=== PATIENT | female | born 1980 | race Caucasian/White ===

== ENCOUNTER 2017-04-07 11:42 | Inpatient (IN) | payer OTHER ==
[~2017-04-07] VITALS: Ht 162.6 cm; Wt 71.0 kg
[~2017-04-07 11:42] MED LIST: ANAPROX DS550 MG PO; AUGMENTIN 875 M1 TAB PO; BACTRIM DS 8001 TA1 PO; CIPRO500 MG PO; DOXYCYCLINE MO100 MG PO; MOTRIN800 MG PO; PEN-VEE K500 MG PO; PIROXICAN20 MG PO; SEPTRA DS 800 M1 TAB PO; TRAMADOL HCL50 MG PO; TRIMOX500 MG PO; ULTRAM50 MG PO
[2017-04-07 12:00] VITALS: BP 104/73
[2017-04-07 14:38] LABS: BASO % 0.3 % (0.0-1.0); HEMATOCRIT 43.8 % (37.0-47.0); HEMOGLOBIN 14.2 g/dl (12.0-16.0); LYMPH # 1.5 10*3/uL (1.3-4.4); LYMPH % 40.6 % (27.0-41.0); MEAN CELL VOLUME 93.2 fl (81.0-99.0); MEAN CORPUSCULAR HGB 30.2 pg (27.0-31.0); MEAN CORPUSCULAR HGB CONC 32.4 g/dl (33.0-37.0); MEAN PLATELET VOLUME 10.4 fl (9.6-12.3); MONO # 0.3 10*3/uL (0.1-1.0); MONO % 7.4 % (3.0-9.0); NEUT % 51.4 % (47.0-73.0); PLATELET COUNT AUTOMATED 228 10*3/uL (130-400); RED CELL DISTRI WIDTH 13.2 % (0-14.5); WHITE BLOOD COUNT 3.8 10*3/uL (4.8-10.8)
[2017-04-07 14:46] LABS: PROTHROMBIN TIME 10.9 SECONDS (9.0-12.4)
[2017-04-07 14:53] LABS: ALBUMIN 3.9 gm/dl (3.1-4.5); ALKALINE PHOSPHATASE 54 U/L (45-117); BILIRUBIN, TOTAL 0.5 mg/dl (0.2-1.0); BUN 12 mg/dl (7-24); CARBON DIOXIDE 25 mmol/L (21-32); CHLORIDE 101 mmol/L (98-107); EST GLOM FILT AFRICAN AMERICAN > 60 ml/min; GLUCOSE 85 mg/dL (65-99); POTASSIUM 3.9 mmol/L (3.5-5.1); SGOT/AST 19 IU/L (3-35); SGPT/ALT 18 U/L (12-78); SODIUM 133 mmol/L (136-145); TOTAL PROTEIN 8.1 gm/dL (6.4-8.2)
[2017-04-07 15:37] LABS: BILIRUBIN 2+ (NEGATIVE); BLOOD 2+ (NEGATIVE); CLARITY CLOUDY (CLEAR); COLOR YELLOW (YELLOW); GLUCOSE NEGATIVE (NEGATIVE); KETONE 1+ (NEGATIVE); LEUKO ESTERASE TRACE (NEGATIVE); NITRITE NEGATIVE (NEGATIVE); PROTEIN 1+ (NEGATIVE); SPECIFIC GRAVITY >= 1.030 (1.005-1.030)
[2017-04-07 15:44] LABS: URINE AMPHETAMINES < 1000 (1000ng/ml); URINE BARBITURATES < 200 (200ng/ml); URINE COCAINE > 300 (300ng/ml)
[2017-04-07 16:00] VITALS: BP 104/73
[2017-04-07 16:07] LABS: EPITHELIAL CELLS 20-25; WBC TNTC wbc/hpf (0-5)
[2017-04-07 16:08] LABS: BACTERIA 3+; CALCIUM OXALATE CRYSTALS 3+; MUCOUS TRACE; URINE REFLEX COMMENT YES (NO)
[2017-04-07 20:00] VITALS: BP 111/41
[2017-04-08] VITALS: BP 115/76
[2017-04-08 08:00] VITALS: BP 126/76
[2017-04-08 16:00] VITALS: BP 126/82
[2017-04-08 20:00] VITALS: BP 124/65
[2017-04-09] VITALS: BP 113/60
[2017-04-09 08:00] VITALS: BP 119/74
== END 2017-04-09 08:46 | disposition left against medical advice (07) | DRG 894 ==
LOC: 5E 11:42
PROVIDERS: Internal Medicine
DX: F11.23 Opioid dependence with withdrawal (principal); L03.115 Cellulitis of right lower limb; B19.20 Unspecified viral hepatitis C without hepatic coma; F14.10 Cocaine abuse, uncomplicated; F41.9 Anxiety disorder, unspecified; A59.01 Trichomonal vulvovaginitis; F17.210 Nicotine dependence, cigarettes, uncomplicated; Z53.21 Procedure and treatment not carried out due to patient leaving prior to being seen by health care provider; F10.21 Alcohol dependence, in remission; Z88.0 Allergy status to penicillin; Z71.6 Tobacco abuse counseling